=== PATIENT | female | born 1980 | race African-American/Black ===

== ENCOUNTER 2019-06-03 19:04 | Observation (INO) | payer BC ==
[2019-06-03] MEDS ORDERED: Ondansetron ODT 4 MG TAB ONE (19:54)
[2019-06-03 20:14] LABS: Band 6 % (5-11); Eosinophils 3 % (0-10); Hemoglobin 16.7 g/dL (12.0-16.0); Lymphocytes 12 % (21-51); MDiff Complete? YES; Mean Corpuscular HGB CONC 33.2 g/dL (32.0-36.0); Mean Corpuscular Hemoglobin 27.3 pg (27.0-31.0); Mean Corpuscular Volume 82.2 fL (78.0-98.0); Mean Platelet Volume 8.1 fL (7.4-10.4); Monocytes 13 % (0-10); Neutrophil 66 % (42-75); Platelet Count 337 thou/uL (130-400); RBC Distribution Width 12.7 % (11.5-14.5); Red Blood Cell (RBC) Count 6.11 mill/uL (4.20-5.40); White Blood Cell (WBC) Count 5.8 thou/uL (4.8-10.8)
[2019-06-03 20:46] LABS: ALT (SGPT) 20 U/L (8-55); Albumin 4.4 g/dL (3.5-5.0); Alkaline Phosphatase 86 U/L (40-110); Anion Gap 18 mmol/L (10-20); BUN (Urea Nitrogen) 19 mg/dL (7.0-18.7); Bilirubin, Total 0.5 mg/dL (0.2-1.2); Calc. Creatinine Clearance 0 mL/min (70-130); Calcium 9.7 mg/dL (7.8-10.44); Carbon Dioxide 14 mmol/L (22-29); Chloride 106 mmol/L (98-107); Estimated GFR-MDRD 53; Glucose 104 mg/dL (70-105); Sodium 133 mmol/L (136-145)
[2019-06-03 20:48] LABS: AST (SGOT) 14 U/L (5-34); Globulin 2.9 g/dL (2.4-3.5); Potassium 3.8 mmol/L (3.5-5.1); Protein, Total 7.3 g/dL (6.0-8.3)
[2019-06-03] MEDS ORDERED: Ondansetron ODT 4 MG TAB SL PRN (21:33)
[2019-06-03] MEDS ORDERED: Ondansetron PF 4 MG/2 ML Vial IVP PRN (21:33)
[2019-06-03 21:45] VITALS: BMI 43.1
[2019-06-03] MEDS ORDERED: Acetaminophen 325 MG TAB PO PRN (21:48)
[2019-06-04] MEDS: Sodium Chloride 0.9% 1,000 ML IV SCH ×4 (00:36→15:21)
[2019-06-04 04:50] LABS: Anion Gap 14 mmol/L (10-20)
[2019-06-04 05:02] LABS: Mean Corpuscular Hemoglobin 26.9 pg (27.0-31.0); Mean Corpuscular Volume 81.6 fL (78.0-98.0); Mean Platelet Volume 7.3 fL (7.4-10.4); Platelet Count 252 thou/uL (130-400); RBC Distribution Width 12.5 % (11.5-14.5); Red Blood Cell (RBC) Count 5.22 mill/uL (4.20-5.40); White Blood Cell (WBC) Count 4.8 thou/uL (4.8-10.8)
[2019-06-04 05:03] LABS: Band 15 % (5-11); Eosinophils 8 % (0-10); Lymphocytes 24 % (21-51); MDiff Complete? YES; Monocytes 14 % (0-10); Neutrophil 39 % (42-75); Platelet Morphology Comment Appears Adequate; RBC Morphology Normal
[2019-06-04 05:07] LABS: Calcium 8.1 mg/dL (7.8-10.44)
[2019-06-04 05:08] LABS: ALT (SGPT) 16 U/L (8-55); AST (SGOT) 16 U/L (5-34); Albumin 3.7 g/dL (3.5-5.0); Alkaline Phosphatase 73 U/L (40-110); BUN (Urea Nitrogen) 13 mg/dL (7.0-18.7); Bilirubin, Total 0.6 mg/dL (0.2-1.2); Calc. Creatinine Clearance 180 mL/min (70-130); Carbon Dioxide 16 mmol/L (22-29); Chloride 111 mmol/L (98-107); Estimated GFR-MDRD Greater than 90; Globulin 2.9 g/dL (2.4-3.5); Glucose 114 mg/dL (70-105); Potassium 3.5 mmol/L (3.5-5.1); Protein, Total 6.6 g/dL (6.0-8.3); Sodium 137 mmol/L (136-145)
[2019-06-04 20:53] VITALS: BP 118/75; TEMP 98.3
[2019-06-04] MEDS ORDERED: Azithromycin 250 MG TAB PO SCH (21:00)
--- NOTE | 2019-06-05 00:45 | HP ---
ADMISSION HISTORY AND PHYSICAL AND 23-HOUR OBSERVATION NOTE CHIEF COMPLAINT: Nausea, diarrhea, and weakness. HISTORY OF PRESENT ILLNESS: The patient is a previously healthy 38-year-old female, who on the morning prior to admission began having some loose stools, nausea, anorexia, and decreased appetite. Her decreased appetite continued to the point where she ate a banana the evening prior to admission and felt nauseated and threw it up. The next day, she went to work. By the end of her work shift, she felt very weak, was evaluated in the emergency room, found to be dehydrated, and admitted to observation for IV fluids and further treatment and testing. PAST MEDICAL HISTORY: Significant for umbilical hernia with hernia repair. PAST SURGICAL HISTORY: Cholecystectomy about 5 years ago. MEDICATIONS: No known medications. ALLERGIES: NO KNOWN DRUG ALLERGIES. SOCIAL HISTORY: The patient has no significant alcohol, smoking, or social drug use. 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 No history of depression. REVIEW OF SYSTEMS: Prior to her onset of symptoms a day prior to admission, she was in her usual state of health without any URI like symptoms. No significant cough. No significant weight changes. No dysuria, hematuria, or change in urinary frequency. No significant back pain. No rashes reported. Patient denies increased lower extremity edema. No chest pain or shortness of breath. The patient denies depression. PHYSICAL EXAMINATION: In the emergency room, VITAL SIGNS: Blood pressure 135/92; pulse was initially 132, after 1.5 L of IV fluids, went down to 110; respiratory rate was 18 and nonlabored; temperature 98.7; O2 saturations was 97% on room air. HEENT: Atraumatic and normocephalic. Extraocular movements were intact. Pupils are equal, round, reactive to light, and accommodation. Oropharynx; mucous membranes were dry. No lesions noted. NECK: Supple. No masses palpated. CHEST: Clear to auscultation bilaterally. HEART: Regular rate and rhythm. ABDOMEN: Bowel sounds are hyperactive in all 4 quadrants. No focal tenderness. Diffuse tenderness to palpation in all 4 quadrants. There was an umbilical hernia which was palpable. EXTREMITIES: No cyanosis, clubbing, nor edema. LABORATORY DATA: On admission, the patient had a CBC, which had a white count 5800 with an H and H of 16.7 and 50.2. Electrolytes were significant for BUN of 19 and creatinine of 1.35 with a sodium 133. ASSESSMENT AND PLAN: The patient was admitted to observation status for dehydration, was placed on normal saline IV fluids. Zofran was given for nausea IV or sublingual. HOSPITAL COURSE: The patient had several liters of IV fluids in the first 24 hours. Her diarrhea decreased in frequency. Her appetite increased and she was able to start taking a full liquid diet without emesis. She did have a formed stool about 6 hours prior to discharge. Blood tests; repeat CBC showed normalization of the hemoglobin and hematocrit, white count continued to be normal. BUN went down to 13, creatinine 0.81. Stool studies showed positive lactoferrin. E Coli 0157 culture was performed, which was negative. The patient underwent a stool lactoferrin, which was positive. Shiga toxin was negative, but Campylobacter antigen assay was positive. The patient was given one dose of Zithromax 500 mg x1. DISCHARGE MEDICATIONS: The patient will be discharged on Zithromax 500 mg for full 3-day course. DISCHARGE INSTRUCTIONS: Her diet will be advanced as tolerated. She was told to stay home for the next 24 hours, but then activity as tolerated. All patient's questions were answered. She was stable for discharge in the evening of 2019. Job ID: [id number] [id number]
[2019-06-05] MEDS ORDERED: Azithromycin 250 MG TAB PO SCH (09:00)
== END 2019-06-04 20:28 | disposition home or self-care (01) ==
LOC: BURERS 19:04 → BURMED 20:55
PROVIDERS: ADMIT Family Medicine; ATTEND Family Medicine
DX: E86.0 Dehydration (principal); R19.7 Diarrhea, unspecified; R11.0 Nausea; R53.1 Weakness; K42.9 Umbilical hernia without obstruction or gangrene
CPT/HCPCS: 36415; 80053; 83630; 85007; 85025; 85027; 87045; 87046; 87427; 87449; 96360; 96361; G0378; Q0162